=== PATIENT | female | born 1960 | race Hispanic/Latino ===

== ENCOUNTER 2018-06-12 21:51 | Emergency (ER) | payer OTHER ==
[~2018-06-12] VITALS: Ht 165.1 cm; Wt 77.1 kg
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
[2018-06-12 22:11] VITALS: BP 105/73
--- NOTE | 2018-06-12 22:34 | NUR ---
ALEJANDRO GARCIA IN ROOM AT THIS TIME.
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
[2018-06-12 22:40] LABS: BASOPHIL # 0.1 10^3/uL (0.0-0.1); BASOPHIL % 1.1 % (0.0-0.2); EOSINOPHIL # 0.3 10^3/uL (0.0-0.2); EOSINOPHIL % 3.3 % (0.0-5.0); HEMOGLOBIN 14.3 g/dL (12.0-15.0); LYMPHOCYTES # 2.6 10^3/uL (1.0-4.8); LYMPHOCYTES % 28.1 % (24.0-44.0); MEAN CELL HGB 29.5 pg (26-34); MEAN CELL HGB CONCENTRATION 33.4 g/dL (33-37); MEAN CORP VOLUME 88.4 fL (78-100); MEAN PLATELET VOLUME 9.6 fL (7.8-11.0); MONOCYTES # 0.7 10^3/uL (0.3-0.8); MONOCYTES % 7.5 % (5.0-12.0); NEUTROPHIL # 5.4 10^3/uL (1.8-7.7); NEUTROPHILS % 59.7 % (41.0-85.0); RED CELL DISTRIBUTION WIDTH 14.1 % (11.5-14.5); WHITE BLOOD CELL 9.1 10^3/uL (4.5-11.0)
--- NOTE | 2018-06-12 22:43 | NUR ---
GHASSAN LAKHANI IN PT ROOM TO TRANSPORT PT TO CT VIA WHEELCHAIR AT THIS TIME.
[2018-06-12 22:55] LABS: CARBON DIOXIDE 23.6 mmol/L (20.0-32)
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
--- NOTE | 2018-06-12 23:33 | NUR ---
IV DC'D AT THIS TIME. CATHETER TIP INTACT.
[2018-06-13 00:01] VITALS: BP 105/73
== END 2018-06-12 23:40 | disposition home or self-care (01) ==
LOC: ER 21:51
DX: S30.1XXA Contusion of abdominal wall, initial encounter (principal); I10 Essential (primary) hypertension; V40.1XXA Car passenger injured in collision with pedestrian or animal in nontraffic accident, initial encounter; Y93.89 Activity, other specified; Y92.488 Other paved roadways as the place of occurrence of the external cause; Y99.8 Other external cause status
CPT/HCPCS: 36415; 74177; 80053; 85025; 85610; 85730; 99285; Q9965